=== PATIENT | female | born 1950 | race Caucasian/White ===

== ENCOUNTER 2021-06-02 20:24 | Observation (INO) | payer MEDICARE ==
[2021-06-02] MEDS ORDERED: SODIUM CHLORIDE 0.9% 500 ML 500 ML IV STA (21:01)
[2021-06-02] MEDS ORDERED: ACETAMINOPHEN TAB 500 MG TAB PO STA (21:23)
--- NOTE | 2021-06-02 21:23 | ED ---
Weakness HPI - General Chief complaint: Weakness Stated complaint: Weakness Time Seen by Provider: 06/02/21 21:01 Source: patient, EMS, RN notes reviewed Mode of arrival: EMS Limitations: no limitations - History of Present Illness Initial comments: This is a pleasant 71-year-old female who presents to emergency department after falling at home. This occurred about one hour prior to arrival. Patient states that she went to put her pants on slipped onto her butt and could not get up. Daughter states that she was slurring her speech when she was talking to EMS. She states that this is better now. There was no evidence or complaints of focal weakness. Patient really has no complaints at this time. In fact, when she got up with the help of EMS she was able to walk down the stairs at her home. Patient found to have a low-grade fever here. MD Complaint: generalized weakness - Related Data Home Medications Medication Instructions Recorded Confirmed Atorvastatin Calcium [Lipitor] 20 mg PO DAILY 06/02/21 06/02/21 HYDROcodone/APAP 5-325MG [[place] 1 tab PO Q6HR PRN 06/02/21 06/02/21 5-325] Omeprazole 20 mg PO DAILY 06/02/21 06/02/21 amLODIPine [Norvasc] 10 mg PO DAILY 06/02/21 06/02/21 Allergies Allergy/AdvReac Type Severity Reaction Status Date / Time No Known Allergies Allergy Verified 06/02/21 22:59 Review of Systems ROS Statement: Those systems with pertinent positive or pertinent negative responses have been documented in the HPI. ROS Other: All systems not noted in ROS Statement are negative. Past Medical History Past Medical History: Hyperlipidemia, Hypertension History of Any Multi-Drug Resistant Organisms: None Reported Past Surgical History: Hysterectomy, Joint Replacement, Tonsillectomy Past Psychological History: No Psychological Hx Reported Smoking Status: Never smoker Past Alcohol Use History: None Reported Past Drug Use History: None Reported General Exam - General Exam Comments Initial Comments: Elderly female in no acute distress. Does not appear to be ill or toxic. Vital signs reviewed. Limitations: no limitations General appearance: alert, in no apparent distress Head exam: Present: atraumatic, normocephalic, normal inspection Eye exam: Present: normal appearance, PERRL, EOMI. Absent: scleral icterus, conjunctival injection, periorbital swelling ENT exam: Present: normal exam, normal oropharynx, mucous membranes moist, TM's normal bilaterally, normal external ear exam. Absent: mucous membranes dry Neck exam: Present: normal inspection, full ROM. Absent: tenderness, meningismus, lymphadenopathy Respiratory exam: Present: normal lung sounds bilaterally. Absent: respiratory distress, wheezes, rales, rhonchi, stridor Cardiovascular Exam: Present: regular rate, normal rhythm, normal heart sounds. Absent: systolic murmur, diastolic murmur, rubs, gallop, clicks GI/Abdominal exam: Present: soft, normal bowel sounds. Absent: distended, tenderness, guarding, rebound, rigid Extremities exam: Present: normal inspection, full ROM, normal capillary refill. Absent: tenderness, pedal edema, joint swelling, calf tenderness Back exam: Present: normal inspection Neurological exam: Present: alert, oriented X3, CN II-XII intact, other (Cerebellar testing is normal. No focal neurologic deficit. Alert and oriented 4. [place] Coma Scale is 15.). Absent: altered, motor sensory deficit Psychiatric exam: Present: normal affect, normal mood Skin exam: Present: warm, dry, intact, normal color. Absent: rash Course Vital Signs 06/02/21 06/02/21 06/02/21 20:27 20:35 22:00 Temperature 100.7 F H Pulse Rate 97 102 H 91 Respiratory 18 18 18 Rate Blood Pressure 132/65 125/70 121/62 O2 Sat by Pulse 96 95 96 Oximetry 06/02/21 22:55 Temperature 99.5 F Pulse Rate Respiratory Rate Blood Pressure O2 Sat by Pulse Oximetry - Reevaluation(s) Reevaluation #1: 06/02/21 22:04 Medical record is reviewed Symptoms are stable here in the emergency department Patient is informed of results and questions answered Patient in no distress Repeat neurological examination shows no focal deficit, alert 904, cranial nerves II through XII intact, and a score of 0 Reevaluation #2: 06/03/21 00:14 Medical record is reviewed Symptoms are improved here in the emergency department Patient is informed of results and questions answered Patient in no distress Her refill less than 2 seconds. Patient has adequate skin color. No tachypnea. Regular heart rate. Pulses are 2+ out of 4 peripherally. Reevaluation #3: 06/03/21 00:15 Repeat neurological evaluation is benign. Cranial nerves II through XII intact. Alert and oriented 4. NH 0. - Consultations Consultation #1: Call made for the hospitalist physician for admission. EKG Findings - EKG Comments: EKG Findings:: EKG shows sinus rhythm with occasional PACs. Right ventricular conduction delay, heart [place] in V1. Normal intervals, rate of 93. No acute changes otherwise. Medical Decision Making - Medical Decision Making no focal deficit, alert 904, cranial nerves II through XII intact, and a score of 0 At this patient had an episode of slurred speech which started about 7:30 according to her daughter and lasted for about 10 minutes. Total resolution. Patient was started on Rocephin. Patient was given aspirin 325 mg by mouth. - Lab Data Result diagrams: 06/02/21 21:30 06/02/21 21:30 Lab Results 06/02/21 06/02/21 06/02/21 Range/Units 21:30 21:30 21:30 WBC 14.6 H (3.8-10.6) k/uL RBC 4.55 (3.80-5.40) m/uL Hgb 12.9 (11.4-16.0) gm/dL Hct 40.2 (34.0-46.0) % MCV 88.4 (80.0-100.0) fL MCH 28.5 (25.0-35.0) pg MCHC 32.2 (31.0-37.0) g/dL RDW 13.1 (11.5-15.5) % Plt Count 259 (150-450) k/uL MPV 7.2 Neutrophils % 85 % Lymphocytes % 7 % Monocytes % 6 % Eosinophils % 1 % Basophils % 0 % Neutrophils # 12.4 H (1.3-7.7) k/uL Lymphocytes # 1.0 (1.0-4.8) k/uL Monocytes # 0.9 (0-1.0) k/uL Eosinophils # 0.1 (0-0.7) k/uL Basophils # 0.1 (0-0.2) k/uL Sodium 136 L (137-145) mmol/L Potassium 4.1 (3.5-5.1) mmol/L Chloride 103 (98-107) mmol/L Carbon Dioxide 21 L (22-30) mmol/L Anion Gap 12 mmol/L BUN 18 H (7-17) mg/dL Creatinine 1.12 H (0.52-1.04) mg/dL Est GFR (CKD-EPI)AfAm 58 (>60 ml/min/1.73 sqM) Est GFR (CKD-EPI)NonAf 50 (>60 ml/min/1.73 sqM) Glucose 139 H (74-99) mg/dL Plasma Lactic Acid Philip 1.4 (0.7-2.0) mmol/L Calcium 8.7 (8.4-10.2) mg/dL Total Bilirubin 1.6 H (0.2-1.3) mg/dL AST 23 (14-36) U/L ALT 22 (4-34) U/L Alkaline Phosphatase 137 H (38-126) U/L Troponin I (0.000-0.034) ng/mL Total Protein 7.1 (6.3-8.2) g/dL Albumin 4.0 (3.5-5.0) g/dL TSH 1.410 (0.465-4.680) mIU/L Urine Color Urine Appearance (Clear) Urine pH (5.0-8.0) Ur Specific [place] (1.001-1.035) Urine Protein (Negative) Urine Glucose (UA) (Negative) Urine Ketones (Negative) Urine Blood (Negative) Urine Nitrite (Negative) Urine Bilirubin (Negative) Urine Urobilinogen (<2.0) mg/dL Ur Leukocyte Esterase (Negative) Urine RBC (0-5) /hpf Urine WBC (0-5) /hpf Urine WBC Clumps (None) /hpf Ur Squamous Epith Cells (0-4) /hpf Urine Bacteria (None) /hpf Hyaline Casts (0-2) /lpf Urine Mucus (None) /hpf Coronavirus (PCR) (Not Detectd) 06/02/21 06/02/21 06/02/21 Range/Units 21:30 21:30 22:00 WBC (3.8-10.6) k/uL RBC (3.80-5.40) m/uL Hgb (11.4-16.0) gm/dL Hct (34.0-46.0) % MCV (80.0-100.0) fL MCH (25.0-35.0) pg MCHC (31.0-37.0) g/dL RDW (11.5-15.5) % Plt Count (150-450) k/uL MPV Neutrophils % % Lymphocytes % % Monocytes % % Eosinophils % % Basophils % % Neutrophils # (1.3-7.7) k/uL Lymphocytes # (1.0-4.8) k/uL Monocytes # (0-1.0) k/uL Eosinophils # (0-0.7) k/uL Basophils # (0-0.2) k/uL Sodium (137-145) mmol/L Potassium (3.5-5.1) mmol/L Chloride (98-107) mmol/L Carbon Dioxide (22-30) mmol/L Anion Gap mmol/L BUN (7-17) mg/dL Creatinine (0.52-1.04) mg/dL Est GFR (CKD-EPI)AfAm (>60 ml/min/1.73 sqM) Est GFR (CKD-EPI)NonAf (>60 ml/min/1.73 sqM) Glucose (74-99) mg/dL Plasma Lactic Acid Philip (0.7-2.0) mmol/L Calcium (8.4-10.2) mg/dL Total Bilirubin (0.2-1.3) mg/dL AST (14-36) U/L ALT (4-34) U/L Alkaline Phosphatase (38-126) U/L Troponin I <0.012 (0.000-0.034) ng/mL Total Protein (6.3-8.2) g/dL Albumin (3.5-5.0) g/dL TSH (0.465-4.680) mIU/L Urine Color Yellow Urine Appearance Cloudy H (Clear) Urine pH 5.5 (5.0-8.0) Ur Specific [place] 1.014 (1.001-1.035) Urine Protein 1+ H (Negative) Urine Glucose (UA) Negative (Negative) Urine Ketones 2+ H (Negative) Urine Blood Moderate H (Negative) Urine Nitrite Negative (Negative) Urine Bilirubin Negative (Negative) Urine Urobilinogen <2.0 (<2.0) mg/dL Ur Leukocyte Esterase Large H (Negative) Urine RBC 101 H (0-5) /hpf Urine WBC >182 H (0-5) /hpf Urine WBC Clumps Few H (None) /hpf Ur Squamous Epith Cells 2 (0-4) /hpf Urine Bacteria Moderate H (None) /hpf Hyaline Casts 2 (0-2) /lpf Urine Mucus Few H (None) /hpf Coronavirus (PCR) Not Detected (Not Detectd) Disposition Clinical Impression: Urinary tract infection, Sepsis, TIA (transient ischemic attack) Disposition: ADMITTED IP TO THIS HOSP Condition: Stable Time of Disposition: 23:17 Decision to Admit Reason: Admit from EC Decision Time: 23:17
[2021-06-02 21:47] LABS: Basophils # (A) 0.1 k/uL (0-0.2); Basophils % (A) 0 %; Eosinophils # (A) 0.1 k/uL (0-0.7); Eosinophils % (A) 1 %; HCT 40.2 % (34.0-46.0); HGB 12.9 gm/dL (11.4-16.0); Lymphocytes % (A) 7 %; MCH 28.5 pg (25.0-35.0); MCHC 32.2 g/dL (31.0-37.0); MCV 88.4 fL (80.0-100.0); Mean Platelet Volume 7.2; Monocytes # (A) 0.9 k/uL (0-1.0); Monocytes % (A) 6 %; Neutrophils # (A) 12.4 k/uL (1.3-7.7); Neutrophils % (A) 85 %; Platelet Count 259 k/uL (150-450); RBC 4.55 m/uL (3.80-5.40); RDW 13.1 % (11.5-15.5); WBC 14.6 k/uL (3.8-10.6)
[2021-06-02 22:01] LABS: Calcium 8.7 mg/dL (8.4-10.2); Potassium 4.1 mmol/L (3.5-5.1); Total Bilirubin 1.6 mg/dL (0.2-1.3); Total Protein 7.1 g/dL (6.3-8.2)
--- NOTE | 2021-06-02 22:01 | XR ---
EXAMINATION TYPE: XR chest 2V DATE OF EXAM: 06/02/2021 9:46 PM COMPARISON: None TECHNIQUE: XR chest 2V Frontal and lateral views of the chest. CLINICAL INDICATION:Female, 71 years old with history of Weakness; FINDINGS: Lungs/Pleura: There is flattening of the diaphragm with increased lucency of the lungs. No evidence o f pneumothorax, pleural effusion or focal consolidation. Pulmonary vascularity: Unremarkable. Heart/mediastinum: Cardiomediastinal silhouette is prominent in size. Musculoskeletal: No acute osseous pathology. IMPRESSION: 1. No acute cardiopulmonary disease process. 2. COPD changes.
--- NOTE | 2021-06-02 22:01 | CT ---
EXAMINATION TYPE: CT brain wo con CT DLP: 1129.4 mGycm, Automated exposure control for dose reduction was used. DATE OF EXAM: 06/02/2021 9:48 PM COMPARISON: None. CLINICAL INDICATION:Female, 71 years old with history of Transient speech difficulty, Transient speec h difficulty after fall. TECHNIQUE: Brain: Multiple axial CT images of the brain were obtained without IV contrast. FINDINGS: Brain: Extra-axial spaces: No abnormal extra-axial fluid collections. Ventricular system: Within normal limits Cerebral parenchyma: No acute intraparenchymal hemorrhage or mass effect. The rome-white junction is well differentiated. Cerebellum: Unremarkable. Mass effect: No evidence of midline shift. Intracranial vasculature: unremarkable Soft tissues: Normal. Calvarium/osseous structures: No depressed skull fracture. Paranasal sinuses and mastoid air cells: Mild scattered paranasal sinus disease. Visualized orbits: Orbital contents are intact. IMPRESSION: No acute intracranial process.
[2021-06-02 22:08] LABS: Appearance,Urine Cloudy (Clear); Bacteria,Urine Moderate /hpf; Bilirubin,Urine Negative (Negative); Blood,Urine Moderate (Negative); Color,Urine Yellow; Glucose,Urine (UA) Negative (Negative); Hyaline Casts,Urine 2 /lpf (0-2); Ketones,Urine 2+ (Negative); Leukocyte Esterase,Urine Large (Negative); Mucus,Urine Few /hpf; Nitrite,Urine Negative (Negative); PH, Urine 5.5 (5.0-8.0); Protein,Urine 1+ (Negative); RBC,Urine 101 /hpf (0-5); Specific Gravity,Urine 1.014 (1.001-1.035); Squamous Epithelial Cell,Urine 2 /hpf (0-4); Urobilinogen,Urine <2.0 mg/dL (<2.0); WBC,Urine >182 /hpf (0-5)
--- NOTE | 2021-06-02 22:45 | CT ---
EXAMINATION TYPE: CT angio head neck DATE OF EXAM: 06/02/2021 COMPARISON: None HISTORY: Slurred speech. CT DLP: 486 mGycm Automated exposure control for dose reduction was used. CONTRAST: Performed with IV Contrast, patient injected with 65ml mL of Isovue 370. Images obtained from the aortic arch to the vertex of the brain with IV contrast. There are Three-D p ostprocessed images. There is normal branching pattern of the great vessels on the aortic arch. There is arterial flow in both subclavian arteries. There is arterial flow in the common internal and external carotid arteries bilaterally. There is arterial flow in both vertebral arteries. There is arterial flow in the verteb robasilar artery system. There is wide patency of the carotid artery bifurcations. No stenosis. Verte bral arteries appear within normal limits. No evidence of carotid or vertebral artery aneurysm or dis section. There is arterial flow in the anterior middle and posterior cerebral arteries. No evidence of intracr anial aneurysm or neovascularity. No mass effect there is normal enhancement of the venous sinuses. IMPRESSION: Negative CT angiogram of the neck. Negative CT angiogram of the brain.
[2021-06-02] MEDS ORDERED: ASPIRIN 325 MG TAB PO STA (23:21)
[2021-06-02] MEDS ORDERED: SODIUM CHLORIDE 0.9% 1,000 ML IV SCH (23:30)
[2021-06-03] MEDS ORDERED: NALOXONE 0.4 MG/ML 1 ML VIAL IV PRN (00:34)
[2021-06-03] MEDS ORDERED: ACETAMINOPHEN TAB 325 MG TAB PO PRN (00:34)
[2021-06-03] MEDS ORDERED: ONDANSETRON 4 MG/2 ML VIAL IVP PRN (00:34)
[2021-06-03] MEDS ORDERED: HYDROcodone/APAP 5-325MG 1 EACH TAB PO PRN (07:57)
--- NOTE | 2021-06-03 07:57 | P.HPIM ---
History of Present Illness H&P Date: 06/03/21 History of Presenting Illness: Patient is a very pleasant 71-year-old female with a past medical history of hypertension, hyperlipidemia, and osteoarthritis. She presented to the emergency department status post fall at home. Patient reports that she was putting her pajamas on and when putting on her bottoms she slid down off of the bed onto her bottom. Patient states she was having difficulties getting up and was not able to get up on her own so her daughter called EMS. Per documentation in the emergency department, patient's daughter reports patient to have an episode of slurred speech lasting approximately 10 minutes and resolving spontaneously without any interventions. Upon arrival to the emergency department patient had no reports of slurred speech or weakness. She underwent full evaluation in the emergency department. CT brain was completed negative for acute intercranial process. CTA head and neck negative. Chest x-ray negative for acute cardiopulmonary process revealing evidence of COPD changes with flattening of the diaphragm and increased lucency of the lungs. EKG showing sinus rhythm and 93 bpm with occasional PAC, no noted T-wave or ST ab normality showing no signs of acute ischemia. Labs significant for leukocytosis with WBC count of 14.6 and mild elevation of renal function with BUN 18, creatinine 1.12, and GFR of 50. Urinalysis was positive for infection. Patient was started on IV antibiotics Rocephin and admitted under our services with consultation to neurology. Patient was seen and fully evaluated at the bedside this morning. She was alert and oriented to person, place, time, and situation. Speech was clear, face symmetrical, pupils equal, patient with no noted neurological deficits and ambulatory with a steady gait unassisted and room without any difficulties. Patient denied having any complaints including headac he, lightheadedness, dizziness, chest pain, palpitations, shortness of breath, dyspnea with exertion, abdominal pain, nausea, vomiting, having any difficulties in her changes in urinary or bowel function, denied urinary frequency, urgency, dysuria, hematuria, or any other complaints. Patient has some noted swelling in lower extremities and reports this is her baseline and unchanged times many yea rs. Patient reports that she has full recollection of sliding off of the bed when putting her pajamas on, she denies experiencing any dizziness, lightheadedness, weakness, or numbness prior to fall and denies any injuries, focal weaknesses, or numbness after the fall. Review of systems: Pertinent positives and negatives as discussed in HPI, a complete review of systems was performed and all other systems are negative. Physical exam: Vital signs reviewed and stable. General: Nontoxic, no distress and appears stated age. Derm: Skin warm and dry, normal coloration for ethnicity. Head: Atraumatic, normocephalic and symmetric. Eyes: EOMs intact, no lid lag, and anicteric sclera Mouth: no lip lesions, mucus membranes moist Cardiovascular: regular rate and rhythm with normal S1S2, no murmur, positive posterior tibial pulses bilaterally, and cap refill < 2 seconds. Lungs: Respirations even, regular, and unlabored on room air. Lungs CTA bilaterally, no rhonchi, no rales, no wheezing, and no accessory muscle usage. Abdominal: soft, nontender to palpation, no guarding, no appreciable organomegaly Ext: ROM intact. No gross muscle atrophy, 1+ pitting edema to bilateral lower extremities, no contractures Neuro: Speech clear, face symmetrical and CN II-XII grossly intact with no noted focal neuro deficits. Strong strength in bilateral upper and lower extremities. Ambulatory with a steady gait unassisted. No neural deficits. Psych: Alert and oriented to person, place, time, and situation. Appropriate and pleasant affect. Assessment and Plan of Care: Mechanical fall, weakness with inability to get up independently after fall Reported episode of slurred speech -CT brain without contrast negative -CTA head and neck negative -Neuro checks -Neurology consult -Echocardiogram -Lipid profile -Continue daily aspirin and atorvastatin -PT/OT consulted Hypertension -Monitor vital signs and continue daily medication regimen with amlodipine Hyperlipidemia -Continue daily medication regimen with atorvastatin -Lipid profile The patient is admitted with an anticipated less than 2 midnight stay for evaluation of mechanical fall with episode of slurred speech. CODE STATUS: Full code DVT prophylaxis: [place] Discussed with: Patient and RN Anticipated discharge date: Likely later today versus tomorrow morning Anticipated discharge place: home A total of 40 minutes was spent on the care of this complex patient more than 50% of the time was spent in counseling and care coordination. Nathan Bailon NP rendered care for this patient independently, reviewed the findings and plan as documented in the note above. I did not physically speak with or examine the patient on this date. Past Medical History Past Medical History: Hyperlipidemia, Hypertension History of Any Multi-Drug Resistant Organisms: None Reported Past Surgical History: Hysterectomy, Joint Replacement, Tonsillectomy Past Psychological History: No Psychological Hx Reported Smoking Status: Never smoker Past Alcohol Use History: None Reported Past Drug Use History: None Reported Medications and Allergies Home Medications Medication Instructions Recorded Confirmed Type Atorvastatin Calcium [Lipitor] 20 mg PO DAILY 06/02/21 06/02/21 History HYDROcodone/APAP 5-325MG [[place] 1 tab PO Q6HR PRN 06/02/21 06/02/21 History 5-325] Omeprazole 20 mg PO DAILY 06/02/21 06/02/21 History amLODIPine [Norvasc] 10 mg PO DAILY 06/02/21 06/02/21 History Aspirin 81 mg PO DAILY 30 Days #30 tab 06/03/21 Rx Cephalexin [Keflex] 500 mg PO Q8HR 4 Days #12 cap 06/03/21 Rx Allergies Allergy/AdvReac Type Severity Reaction Status Date / Time No Known Allergies Allergy Verified 06/02/21 22:59 Physical Exam Osteopathic Statement: *. No significant issues noted on an osteopathic structural exam other than those noted in the History and Physical/Consult. Vitals: Vital Signs Temp Pulse Pulse Resp BP BP Pulse Ox 06/03/21 07:00 98.3 F 96 16 106/64 94 L 06/03/21 01:37 98.6 F 93 16 136/84 98 06/02/21 22:55 99.5 F 06/02/21 22:00 91 18 121/62 96 06/02/21 20:35 102 H 18 125/70 95 06/02/21 20:27 100.7 F H 97 18 132/65 96 Intake and Output 06/02/21 06/03/21 06/03/21 22:59 06:59 14:59 Other: # Voids 1 Weight 97.976 kg 97.976 kg Results CBC & Chem 7: 06/03/21 09:15 06/03/21 09:15 Labs: Abnormal Lab Results - Last 24 Hours (Table) 06/02/21 06/02/21 06/02/21 Range/Units 21:30 21:30 22:00 WBC 14.6 H (3.8-10.6) k/uL Neutrophils # 12.4 H (1.3-7.7) k/uL Sodium 136 L (137-145) mmol/L Carbon Dioxide 21 L (22-30) mmol/L BUN 18 H (7-17) mg/dL Creatinine 1.12 H (0.52-1.04) mg/dL Glucose 139 H (74-99) mg/dL Total Bilirubin 1.6 H (0.2-1.3) mg/dL Alkaline Phosphatase 137 H (38-126) U/L Urine Appearance Cloudy H (Clear) Urine Protein 1+ H (Negative) Urine Ketones 2+ H (Negative) Urine Blood Moderate H (Negative) Ur Leukocyte Esterase Large H (Negative) Urine RBC 101 H (0-5) /hpf Urine WBC >182 H (0-5) /hpf Urine WBC Clumps Few H (None) /hpf Urine Bacteria Moderate H (None) /hpf Urine Mucus Few H (None) /hpf Microbiology - Last 24 Hours (Table) 06/02/21 22:00 Urine Culture - Preliminary Urine,Voided
[2021-06-03] MEDS ORDERED: ATORVASTATIN 20 MG TAB PO SCH (09:00)
[2021-06-03] MEDS ORDERED: ENOXAPARIN 40 MG/0.4 ML SYRINGE SQ SCH (09:00)
[2021-06-03] MEDS ORDERED: amLODIPine 10 MG TAB PO SCH (09:00)
[2021-06-03] MEDS ORDERED: ASPIRIN 325 MG TAB PO SCH (09:00)
[2021-06-03] MEDS ORDERED: PANTOPRAZOLE 40 MG/10 ML VIAL IV SCH (09:00)
[2021-06-03] MEDS ORDERED: NON FORMULARY DRUG (Omeprazole [Omeprazole] 20 MG Capsule.Dr) PO SCH (09:00)
--- NOTE | 2021-06-03 09:27 | P.CNNES ---
History of Present Illness Consult date: 06/03/21 Requesting physician: Ankit Cm Reason for Consult: possible TIA, transient slurred speech History of Present Illness: This is a 71-year-old woman with medical history of hypertension, hyperlipidemia, very hard of hearing presented emergency department on the 06/02/2021 after falling at home. It seemed to the patient was trying to put the on her pants and slipped at home and fell on her buttocks and could not get up. The daughter felt like she was slurring her speech as a result EMS was contacted that. Per the ED team the patient was able to walk down the stairs at home with some help from EMS. She was found to have low-grade fever. Patient denies of her noticing that she slurred speech. She currently feels she is back to baseline and denies of any headache, any visual disturbance any difficulty swallowing any weakness or numbness. She denies of any TIA or stroke in the past. She stated that she is not on any antiplatelets. Some of the workup in the hospital consisted of: Initial vital signs his blood pressure of 132/65, heart rate of 97, respiratory of 18, temperature of 100.7 Fahrenheit oral pulse ox of 96% room air. Initial white blood cells 14.6 and it's slightly neutrophilic. Next a Initial creatinine is 1.2, BUN is 18, possible left acid vein is 1.4, AST and ALT is within normal limits TSH is 1.410 Urinalysis seen suggestive of urinary tract infection. Bay virus detected. CT of the head is reported as no acute intracranial process. Personally reviewed the CT of the head and there is no acute or subacute ischemia there is a large parenchymal hemorrhage as seen. CT angiography of the head and neck is reported as negative. Per ED team patient exam was normal and her NIH was 0. She was alert oriented 4. No IV TPA since the patient NIH was 0 and she was back to baseline and the risk outweighed the benefit. Review of Systems Review of system: The 12 point system was reviewed and apparent positive and negative per HPI. Past Medical History Past Medical History: Hyperlipidemia, Hypertension History of Any Multi-Drug Resistant Organisms: None Reported Past Surgical History: Hysterectomy, Joint Replacement, Tonsillectomy Past Psychological History: No Psychological Hx Reported Smoking Status: Never smoker Past Alcohol Use History: None Reported Past Drug Use History: None Reported Medications and Allergies Home Medications Medication Instructions Recorded Confirmed Type Atorvastatin Calcium [Lipitor] 20 mg PO DAILY 06/02/21 06/02/21 History HYDROcodone/APAP 5-325MG [[place] 1 tab PO Q6HR PRN 06/02/21 06/02/21 History 5-325] Omeprazole 20 mg PO DAILY 06/02/21 06/02/21 History amLODIPine [Norvasc] 10 mg PO DAILY 06/02/21 06/02/21 History Allergies Allergy/AdvReac Type Severity Reaction Status Date / Time No Known Allergies Allergy Verified 06/02/21 22:59 Physical Examination - Vital Signs Vital Signs: Vital Signs Temp Pulse Pulse Resp BP BP Pulse Ox 06/03/21 07:00 98.3 F 96 16 106/64 94 L 06/03/21 01:37 98.6 F 93 16 136/84 98 06/02/21 22:55 99.5 F 06/02/21 22:00 91 18 121/62 96 06/02/21 20:35 102 H 18 125/70 95 06/02/21 20:27 100.7 F H 97 18 132/65 96 Intake and Output 06/02/21 06/03/21 06/03/21 22:59 06:59 14:59 Other: # Voids 1 Weight 97.976 kg 97.976 kg GENERAL: The patient is lying in bed and is not in acute distress. CHEST: The heart rate is regular rate rhythm. No murmurs to auscultation. No carotid bruit bilaterally. LUNG: Clear to auscultation bilaterally no wheezing noted throughout. Not labored breathing. ABDOMEN/GI: Bowel sounds present in all 4 quadrants. No tenderness to palpation throughout. NEUROLOGICAL: Higher mental function: The patient is awake, alert, oriented to self, place and time. Patient is following commands. No aphasia and no neglect. Cranial nerves: The pupils are round, equal and reactive to light and accommodation. Visual chan are full to confrontation throughout. Extraocular movement is intact no nystagmus is noted. Facial sensation is normal to touch throughout. The facial strength is normal throughout. Hearing is severely decreased bilaterally to hand rub (patient stated she forgot her hearing aids at home). Tongue is midline and moved [id number] without any difficulty. No dysarthria is noted. Shoulder shrug is normal bilaterally. Motor: Gait is normal with normal arm swings. The strength is 5 over 5 throughout. Normal tone and bulk. Cerebellum: Normal finger to nose heel to rabago bilaterally. Sensation: Sensation is normal to touch throughout. Reflexes (right/left): 2+ throughout. Plantars are downgoing bilaterally. Results - Laboratory Findings CBC and BMP: 06/02/21 21:30 06/02/21 21:30 Abnormal Lab Findings: Abnormal Labs 06/02/21 06/02/21 06/02/21 21:30 21:30 22:00 WBC 14.6 H Neutrophils # 12.4 H Sodium 136 L Carbon Dioxide 21 L BUN 18 H Creatinine 1.12 H Glucose 139 H Total Bilirubin 1.6 H Alkaline Phosphatase 137 H Urine Appearance Cloudy H Urine Protein 1+ H Urine Ketones 2+ H Urine Blood Moderate H Ur Leukocyte Esterase Large H Urine RBC 101 H Urine WBC >182 H Urine WBC Clumps Few H Urine Bacteria Moderate H Urine Mucus Few H Assessment and Plan Assessment: Acute urinary tract infection Acute transient dysarthria (noticed by her daughter after fall at home) likely due to underlying acute renal tract infection and possible result of impact of fall. Cannot exclusively exclude TIA. Hyperlipidemia History of hypertension and currently is normotensive Plan: In the ED the patient was started on aspirin 325 daily I'll decrease it to 81 mg daily and she is on Lipitor 20 mg daily that was started by the primary team. This is sufficient enough for secondary stroke prophylaxis 2-D echo, lipid panel were ordered and is pending PT and OT are consulted Continue neuro checks We'll defer the rest of the medical management to the primary team For DVT prophylaxis the patient is on enoxaparin 40 mg daily Upon discharge the patient needs to follow-up with a neurologist as outpatient within 1-2 weeks. Otherwise no further workup from a neurological perspective. The plan is discussed with the patient and her nurse. Thank you for the consultation. Heladio Reese M.D. Neuro-hospitalist Time with Patient: Greater than 30
[2021-06-03 09:29] LABS: HCT 38.1 % (34.0-46.0); HGB 12.3 gm/dL (11.4-16.0); MCH 28.9 pg (25.0-35.0); MCHC 32.2 g/dL (31.0-37.0); MCV 89.5 fL (80.0-100.0); Mean Platelet Volume 7.5; Platelet Count 273 k/uL (150-450); RBC 4.25 m/uL (3.80-5.40); WBC 18.3 k/uL (3.8-10.6)
[2021-06-03 09:56] LABS: ALT 27 U/L (4-34); AST 34 U/L (14-36); African American GFR (CKD) 54 (>60 ml/min/1.73 sqM); Albumin 3.6 g/dL (3.5-5.0); Albumin/Globulin Ratio 1.2; Alkaline Phosphatase 153 U/L (38-126); Anion Gap 13 mmol/L; Blood Urea Nitrogen 17 mg/dL (7-17); Calcium 8.3 mg/dL (8.4-10.2); Carbon Dioxide 20 mmol/L (22-30); Chloride 105 mmol/L (98-107); Globulin 3.1 g/dL; Glucose 131 mg/dL (74-99); Magnesium 1.6 mg/dL (1.6-2.3); Non-African American GFR(CKD) 47 (>60 ml/min/1.73 sqM); Potassium 3.9 mmol/L (3.5-5.1); Sodium 138 mmol/L (137-145); Total Bilirubin 1.4 mg/dL (0.2-1.3); Total Protein 6.7 g/dL (6.3-8.2)
--- NOTE | 2021-06-03 12:15 | ECHOF ---
Referral Reason:r/o TIA MEASUREMENTS -------- HEIGHT: 152.4 cm WEIGHT: 98.0 kg BP: RVIDd: 3.4 cm (< 3.3) IVSd: 1.2 cm (0.6 - 1.1) LVIDd: 3.9 cm (3.9 - 5.3) LVPWd: 1.0 cm (0.6 - 1.1) IVSs: 1.3 cm LVIDs: 3.0 cm LVPWs: 1.6 cm LA Diam: 3.4 cm (2.7 - 3.8) LAESV Index (A-L): 34.44 ml/m Ao Diam: 2.2 cm (2.0 - 3.7) AV Cusp: 1.6 cm (1.5 - 2.6) LA Diam: 3.5 cm (2.7 - 3.8) MV EXCURSION: 12.527 mm (> 18.000) MV EF SLOPE: 51 mm/s (70 - 150) EPSS: 0.6 cm MV E Eduardo: 0.82 m/s MV DecT: 159 ms MV A Eduardo: 0.87 m/s MV E/A Ratio: 0.94 RAP: 5.00 mmHg RVSP: 10.74 mmHg FINDINGS -------- Sinus rhythm. This was a technically good study. LV size, wall thickness and systolic function are normal, with an EF greater than 55%. The left jose tricular size is normal. The right ventricle is mildly enlarged. LA is moderately dilated 34-39 ml/m2 The right atrial size is normal. There is mild aortic valve sclerosis. The mitral valve is normal. Mild mitral regurgitation is present. The tricuspid valve appears structurally normal. Mild tricuspid regurgitation present. Right vent ricular systolic pressure is normal at < 35 mmHg. There is no pulmonic regurgitation present. The aortic root size is normal. Echo free space represents a pericardial fat pad. CONCLUSIONS -------- 1. LV size, wall thickness and systolic function are normal, with an EF greater than 55%. 2. The right ventricle is mildly enlarged. 3. LA is moderately dilated 34-39 ml/m2 4. There is mild aortic valve sclerosis. 5. Mild mitral regurgitation is present. 6. Mild tricuspid regurgitation present. 7. Echo free space represents a pericardial fat pad. ACCOUNTING TUTOR: Rosa Hammonds RDCS
--- NOTE | 2021-06-03 14:39 | P.DS ---
Providers Date of admission: 06/03/21 00:39 Expected date of discharge: 06/03/21 Attending physician: Nadege Tijerina MD Consults: 06/03/21 00:34 Consult Physician Urgent Consulting Provider: Heladio Reese Consult Reason/Comments: Possible TIAtransient slurred speech Do you want consulting provider notified?: Yes, Notify in am Primary care physician: Physician Nonstaff Hospital Course: Discharge Diagnosis: Urinary tract infection with leukocytosis, discharged home on oral Keflex 4 days to complete entire 5 day course of antibiotics. Patient to follow up outpatient with PCP for repeat urinalysis after completion of treatment. Mechanical fall, weakness with inability to get up independently after fall. Pt ambulating without difficulty with a strong steady gait. Acute transient dysarthria ( reported by patient's daughter status post fall at home) likely secondary to underlying infection with UTI or impact of fall, neurology unable to completely exclude TIA. Pt discharged home on daily aspiring and atorvastatin. Hypertension Hyperlipidemia Hospital Course: Patient is a very pleasant 71-year-old female with a past medical history of hypertension, hyperlipidemia, and osteoarthritis. She presented to the emergency department status post fall at home. Patient reports that she was putting her pajamas on and when putting on her bottoms she slid down off of the bed onto her bottom. Patient states she was having difficulties getting up and was not able to get up on her own so her daughter called EMS. Per documentation in the emergency department, patient's daughter reports patient to have an episode of slurred speech lasting approximately 10 minutes and resolving spo ntaneously without any interventions. Upon arrival to the emergency department patient had no reports of slurred speech or weakness. She underwent full evaluation in the emergency department. CT brain was completed negative for acute intercranial process. CTA head and neck negative. Chest x-ray negative for acute cardiopulmonary process revealing evidence of COPD changes with flattening of the diaphragm and increased lucency of the lungs. EKG showing sinus rhythm and 93 bpm with occasional PAC, no noted T-wave or ST abnormality showing no signs of acute ischemia. Labs significant for leukocytosis with WBC count of 14.6 and mild elevation of renal function with BUN 18, creatinine 1.12, and GFR of 50. Urinalysis was positive for infection. Patient was started on IV antibiotics Rocephin and admitted under our services with consultation to neurology. Patient was seen and fully evaluated at the bedside this morning. She was alert and oriented to person, place, time, and situation. Speech was clear, face symmetrical, pupils equal, patient with no noted neurological deficits and ambulatory with a steady gait unassisted and room without any difficulties. Patient denied having any complaints including headache, lightheadedness, dizziness, chest pain, palpitations, shortness of breath, dyspnea with exertion, abdominal pain, nausea, vomiting, having any difficulties in her changes in urinary or bowel function, denied urinary frequency, urgency, dysuria, hematuria, or any other complaints. Patient has some noted swelling in lower extremities and reports this is her baseline and unchanged times many years. Patient reports that she has full recollection of sliding off of the bed when putting her pajamas on, she denies experiencing any dizziness, lightheadedness, weakness, or numbness prior to fall and denies any injuries, focal weaknesses, or numbness after the fall. she was admitted and monitored overnight. Patient remained alert and oriented 4 throughout entire hospitalization with no further episodes of slurred speech or any other neuro deficits noted. She was seen and fully evaluated by neurology. Neurology recommending continuation of daily aspirin 81 mg and atorvastatin 20 mg. echocardiogram was completed revealing a normal EF greater than 55% with no significant valvular abnormalities. Patient medically stable at this time denying any and all complaints. she is stable for discharge home. Prescription sent for Keflex 500 mg every 8 hours 4 days to complete 5 day course of antibiotics for treatment of UTI and patient to continue with atorvastatin 20 mg daily as well as adding a daily 81 mg aspirin to medication regimen. Physical exam: Vital signs reviewed and stable. General: Nontoxic, no distress and appears stated age. Derm: Skin warm and dry, normal coloration for ethnicity. Head: Atraumatic, normocephalic and symmetric. Eyes: EOMs intact, no lid lag, and anicteric sclera Mouth: no lip lesions, mucus membranes moist Cardiovascular: regular rate and rhythm with normal S1S2, no murmur, positive posterior tibial pulses bilaterally, and cap refill < 2 seconds. Lungs: Respirations even, regular, and unlabored on room air. Lungs CTA bilaterally, no rhonchi, no rales, no wheezing, and no accessory muscle usage. Abdominal: soft, nontender to palpation, no guarding, no appreciable organomegaly Ext: ROM intact. No gross muscle atrophy, 1+ pitting edema to bilateral lower extremities, no contractures Neuro: Speech clear, face symmetrical and CN II-XII grossly intact with no noted focal neuro deficits. Strong strength in bilateral upper and lower extremities. Ambulatory with a steady gait unassisted. No neural deficits. Psych: Alert and oriented to person, place, time, and situation. Appropriate and pleasant affect. A total of 39 minutes of time were spent preparing this complex discharge summary. Nathan Bailon NP rendered care for this patient independently, reviewed the findings and plan as documented in the note above. I did not physically speak with or examine the patient on this date. Patient Condition at Discharge: Stable Plan - Discharge Summary New Discharge Prescriptions: New Cephalexin [Keflex] 500 mg PO Q8HR 4 Days #12 cap Aspirin 81 mg PO DAILY 30 Days #30 tab Continue Omeprazole 20 mg PO DAILY HYDROcodone/APAP 5-325MG [[place] 5-325] 1 tab PO Q6HR PRN PRN Reason: Pain amLODIPine [Norvasc] 10 mg PO DAILY Atorvastatin Calcium [Lipitor] 20 mg PO DAILY Discharge Medication List Atorvastatin Calcium [Lipitor] 20 mg PO DAILY 06/02/21 [History] HYDROcodone/APAP 5-325MG [[place] 5-325] 1 tab PO Q6HR PRN 06/02/21 [History] Omeprazole 20 mg PO DAILY 06/02/21 [History] amLODIPine [Norvasc] 10 mg PO DAILY 06/02/21 [History] Aspirin 81 mg PO DAILY 30 Days #30 tab 06/03/21 [Rx] Cephalexin [Keflex] 500 mg PO Q8HR 4 Days #12 cap 06/03/21 [Rx] Follow up Appointment(s)/Referral(s): Francisco Javier Verde MD [REFERRING] - 1 Week Patient Instructions/Handouts: Urinary Tract Infection in Women (DC) Activity/Diet/Wound Care/Special Instructions: Activity: As tolerated. Take breaks as needed. Diet: Heart healthy and carb consistent diet. Avoid salts, or foods with hidden salts such as canned or boxed foods and frozen dinners. Extra salt makes your heart work harder and traps the fluid in your body for longer. Special Instructions: Take all of your medications as directed and remember to keep all of your doctor's appointments and follow-up as needed. You are being discharged home with oral antibiotic, Keflex. It is important to take this medication every 8 hours as directed and complete entire course to ensure full resolution of urinary tract infection. Thank you for allowing us to participate in your care, it was truly a pleasure having you for our patient!!! Discharge Disposition: HOME SELF-CARE
[2021-06-03 14:42] VITALS: BP 107/64; PULSE 86; RESP 20; TEMP 99
[2021-06-03 20:33] LABS: Chol/HDL Ratio 2.78 Ratio; LDL Cholesterol,Calculated 74.8 mg/dL (0.0-131.0)
--- NOTE | 2021-06-03 21:41 | P.PN ---
Progress Note - Text Progress Note Date: 06/03/21 after patient discharge, blood culture results came back showing gram neg rods I notified patient over the phone, she is doing well, I gave her two options, either come back to the ED and get admitted to start her on antibiotics and monitor her for a day or two. or switch her antibiotcs to PO cipro 500 mg BID for 14 days. and to monitor herself closely , if she starts spiking fevers again , or not feeling well , to come back to the ED. she reported that she feels pretty well, and preferred to be prescribed new antibiotics to take at home , and if she starts to feel worse then would come back to the hospital. She chose [facility] in [place]. Cipro 500 mg PO BID for 14 days prescription was sent electronically
[2021-06-04] MEDS ORDERED: ASPIRIN 81 MG PO SCH (09:00)
== END 2021-06-03 15:06 | disposition home or self-care (01) ==
LOC: EC 20:24 → 6NMEDSUR 06-03 00:39
PROVIDERS: ADMIT Internal Medicine; ATTEND Internal Medicine
DX: N39.0 Urinary tract infection, site not specified (principal); R47.1 Dysarthria and anarthria; I10 Essential (primary) hypertension; E78.5 Hyperlipidemia, unspecified; M19.90 Unspecified osteoarthritis, unspecified site; J44.9 Chronic obstructive pulmonary disease, unspecified; M79.89 Other specified soft tissue disorders; H91.90 Unspecified hearing loss, unspecified ear; I08.3 Combined rheumatic disorders of mitral, aortic and tricuspid valves; Z20.822 Contact with and (suspected) exposure to COVID-19; Y92.009 Unspecified place in unspecified non-institutional (private) residence as the place of occurrence of the external cause; W18.30XA Fall on same level, unspecified, initial encounter; W06.XXXA Fall from bed, initial encounter; Z79.82 Long term (current) use of aspirin; Z79.899 Other long term (current) drug therapy; Z71.9 Counseling, unspecified; Z90.710 Acquired absence of both cervix and uterus; Z96.60 Presence of unspecified orthopedic joint implant
CPT/HCPCS: 96366; 96372; 96375; 96361; 96365; 99285; 36415; 93005; 93306; 97161; 80061; 80053 ×2; 83605; 83735; 84443; 84484; 85025; 85027; 81001; 87040; 87086; 87077; 87186; 87635; 71046; 70496; 70450; 70498; G0378; J1650; J0696; C9113; Q9967

== ENCOUNTER → 2021-07-26 | Outpatient (CLI) | payer MEDICARE ==
--- NOTE | 2021-07-27 09:33 | MM ---
Reason for Exam: Screening (asymptomatic). Last mammogram was performed 1 year(s) and 3 month(s) ago. Patient History: Menarche at age 14. First Full-Term at age 26. Hysterectomy at age 48. Postmenopausal. Estrogen for 6 months. Risk Values: [place] 5 year model risk: 1.5%. NCI Lifetime model risk: 4.8%. Prior Study Comparison: 02/26/2020 Bilateral MG screening mammo w CAD - 2, [facility]. 04/27/2020 Bilateral MG screening mammo w CAD - 2, [facility]. Tissue Density: There are scattered fibroglandular densities. Findings: Analyzed By CAD. There is no suspicious group of microcalcifications or new suspicious mass in either breast. Overall Assessment: Negative, BI-RAD 1 Management: Screening Mammogram of both breasts in 1 year. A clinical breast exam by your physician is recommended on an annual basis and results should be correlated with mammographic findings. Electronically signed and approved by: Yves Gonzalez M.D. Radiologis
== END | disposition home or self-care (01) ==
LOC: RADMAMWWP 08:26
PROVIDERS: ATTEND Internal Medicine
DX: Z12.31 Encounter for screening mammogram for malignant neoplasm of breast (principal); Z78.0 Asymptomatic menopausal state
CPT/HCPCS: 77063; 77067

== ENCOUNTER → 2021-08-02 | Outpatient (CLI) | payer MEDICARE ==
--- NOTE | 2021-08-02 12:18 | US ---
EXAMINATION TYPE: US abdomen limited DATE OF EXAM: 08/02/2021 COMPARISON: NONE CLINICAL HISTORY: 71-year-old female R74.8 ABN LEVELS OF OTHER SERUM ENZYMES. TECHNIQUE: Multiple sonographic images of the right or quadrant are obtained. FINDINGS: EXAM MEASUREMENTS: Liver Length: 13.9 cm Gallbladder Wall: 0.1 cm CBD: 0.3 cm Right Kidney: 9.0 x 3.6 x 4.7 cm Pancreas: wnl Liver: Homogeneous appearance. No focal lesion. Gallbladder: wnl Evidence for sonographic Franz's sign: No CBD: wnl Right Kidney: A benign midpole cortical cyst measuring 1.1 x 1.0 x 1.4cm. No hydronephrosis. IMPRESSION: Incidental benign 1.4 cm cortical cyst of the right kidney. Otherwise, unremarkable sonographic exami nation right upper quadrant.
== END | disposition home or self-care (01) ==
LOC: RADUSWWP 08:11
PROVIDERS: ATTEND Internal Medicine
DX: N28.1 Cyst of kidney, acquired (principal)
CPT/HCPCS: 76705

== ENCOUNTER → 2022-07-26 | Outpatient (CLI) | payer MEDICARE ==
--- NOTE | 2022-07-26 13:14 | BD ---
EXAMINATION TYPE: Axial Bone Density DATE OF EXAM: 07/26/2022 CLINICAL HISTORY: 72 years old Female. ICD-10 CODE: Z78.0 ASYMPTOMATIC MENOPAUSAL STATE Height: 60 in Weight: 244 lbs FRAX RISK QUESTIONS: Secondary Osteoporosis: 3. Menopause before 45: total hysterectomy age 46 RISK FACTORS HISTORY OF: Surgery to Hip(right/left): kody When: 2010 and 2013 Active: yes Postmenopausal woman: age 46 MEDICATIONS: Additional Medications: high blood pressure meds,cholesterol meds, heartburn meds EXAM MEASUREMENTS: Bone mineral densitometry was performed using the [employer] System. Bone mineral density as measured about the Lumbar spine is: ----- L1-L4(G/cm2): 1.311 T Score Values are as follows: ----- L1: 0.7 ----- L2: -0.2 ----- L3: 0.9 ----- L4: 2.3 ----- L1-L4: 1.1 Z Score Values are as follows: ----- L1: 1.2 ----- L2: 0.3 ----- L3: 1.4 ----- L4: 2.8 ----- L1-L4: 1.6 Bone mineral density baseline bilateral hip replacements Bone mineral density about the L Wrist (g/cm2): 0.674 T Score values are as follows: -----Dist. R+U: 1.8 -----Prox. R+U: -1.1 -----Radius total: 0.0 Z Score values are as follows: -----Dist. R+U: 3.6 -----Prox. R+U: 0.7 -----Radius total: 1.8 Bone mineral density baseline IMPRESSION: Osteopenia (T Score between -2.5 and -1). There is slightly increased risk of fracture and the patient may be considered for treatment. Re-Screen 2-5 years. NOTE: T-SCORE=SD OF THE YOUNG ADULT MEAN.
--- NOTE | 2022-07-26 14:16 | MM ---
Reason for Exam: Screening (asymptomatic). Last screening mammogram was performed 12 month(s) ago. Patient History: Menarche at age 14. First Full-Term at age 26. Hysterectomy at age 48. Postmenopausal. Patient has history of breast feeding. Estrogen for 6 months. Risk Values: [place] 5 year model risk: 1.5%. NCI Lifetime model risk: 4.5%. Prior Study Comparison: 02/26/2020 Bilateral MG screening mammo w CAD - 2, [facility]. 04/27/2020 Bilateral MG screening mammo w CAD - 2, [facility]. 07/26/2021 Bilateral MG 3D screening mammo w/cad, [facility]. Tissue Density: There are scattered fibroglandular densities. Findings: Analyzed By CAD. There is no suspicious group of microcalcifications or new suspicious mass in either breast. Overall Assessment: Negative, BI-RAD 1 Management: Screening Mammogram of both breasts in 1 year. A clinical breast exam by your physician is recommended on an annual basis and results should be correlated with mammographic findings. Electronically signed and approved by: Dougie Gannon D.O.
== END | disposition home or self-care (01) ==
LOC: RADMAMWWP 12:02
PROVIDERS: ATTEND Internal Medicine
DX: Z12.31 Encounter for screening mammogram for malignant neoplasm of breast (principal); Z13.820 Encounter for screening for osteoporosis; M85.89 Other specified disorders of bone density and structure, multiple sites; Z78.0 Asymptomatic menopausal state
CPT/HCPCS: 77063; 77067; 77080

== ENCOUNTER → 2023-02-01 | Outpatient (CLI) | payer MEDICARE ==
--- NOTE | 2023-02-02 11:14 | MR ---
EXAMINATION TYPE: MR MRCP DATE OF EXAM: 02/01/2023 11:09 AM CLINICAL INDICATION:Female, 72 years old with history of R74.8 elevated alk phos; PHH, ELEVATED ALKAL INE PHOSPHATASE LEVEL COMPARISON: None TECHNIQUE: Multi planar, T2-weighted imaging with and without fat saturation and chemical shift imag ing was performed of the abdomen. Then, heavily T2 weighted imaging (half-Fourier acquisition single- shot turbo spin-echo) was utilized in order to study the biliary system. Maximum intensity projectio n images were reconstructed from the original data of the biliary tree. 3D images were created on [employer] work station. No Gadolinium given. FINDINGS: Lower Thorax: No evidence for acute process. MRCP: * The intrahepatic ducts have a normal appearance. * The common bile duct at the level of the pancreatic head measures 4 mm in size. * The common hepatic duct measures 2-3 mm in size. * The pancreatic duct is normal. * The gallbladder appears unremarkable. Abdomen: Liver: Signal dropout on chemical shift out of phase imaging. Pancreas: Unremarkable. Spleen: Unremarkable. Adrenal glands: Unremarkable. Kidneys: Simple appearing high T2 signal 13 mm right renal cyst. Scattered tiny foci of high T2 signa l within the left kidney likely representing cysts. In intermediate T2 signal cyst in the left kidney measuring 10 mm Stomach and Bowel: Small hiatal hernia. Peritoneum: No evidence of pneumoperitoneum or free fluid. Vasculature: Unremarkable. No aortic aneurysm. Musculoskeletal: The osseous structures appear intact. Lymph Nodes: No gross evidence for lymphadenopathy. Abdominal wall: Unremarkable. IMPRESSION: 1. No evidence to suggest ductal stricture, choledocholithiasis, or biliary ductal dilatation. 2. Hepatic steatosis.
== END | disposition home or self-care (01) ==
LOC: RADMRIMAIN 08:51
PROVIDERS: ATTEND Internal Medicine
DX: K76.0 Fatty (change of) liver, not elsewhere classified (principal); R74.8 Abnormal levels of other serum enzymes
CPT/HCPCS: 74181

== ENCOUNTER → 2023-06-07 | Outpatient (CLI) | payer MEDICARE ==
[2023-06-07 16:10] LABS: Basophils # (A) 0.04 X 10*3/uL (0.00-0.10); Basophils % (A) 0.6 %; Eosinophils # (A) 0.16 X 10*3/uL (0.04-0.35); Eosinophils % (A) 2.3 %; HCT 37.4 % (37.2-46.3); HGB 11.8 g/dL (12.0-15.0); Lymphocytes # (A) 2.23 X 10*3/uL (0.90-5.00); Lymphocytes % (A) 32.4 %; MCHC 31.6 g/dL (32.0-37.0); MCV 88.6 FL (80.0-97.0); Mean Platelet Volume 10.2 FL (9.5-12.2); Monocytes # (A) 0.45 X 10*3/uL (0.20-1.00); Monocytes % (A) 6.5 %; NRBC Per 100 WBC 0 X 10*3/uL (0.00-0.01); Neutrophils # (A) 3.99 X 10*3/uL (1.80-7.70); Neutrophils % (A) 57.9 %; Platelet Count 312 X 10*3/uL (140-440); RBC 4.22 X 10*6/uL (4.10-5.20); RDW 14.1 % (11.5-14.5); WBC 6.89 X 10*3/uL (4.50-10.00)
[2023-06-07 16:20] LABS: Ceruloplasmin 33.1 mg/dL (20.0-60.0)
[2023-06-07 16:22] LABS: Protein, Total 6.8 g/dL (6.2-8.2)
[2023-06-07 16:23] LABS: % Iron Saturation 16.89 (12.00-45.00); ALT 21 U/L (8-44); AST 19 U/L (13-35); Albumin 4.3 g/dL (3.8-4.9); Albumin/Globulin Ratio 1.72 Ratio (1.60-3.17); Alkaline Phosphatase 171 U/L (41-126); BUN/Creat Ratio 22.44 Ratio (12.00-20.00); Blood Urea Nitrogen 20.2 mg/dL (9.0-27.0); Calcium 9.2 mg/dL (8.7-10.3); Carbon Dioxide 23.3 mmol/L (21.6-31.8); Chloride 107 mmol/L (96-109); Ferritin 99.2 ng/mL (10.0-291.0); GGT 23 U/L (0-38); Globulin 2.5 g/dL (1.6-3.3); Glucose 109 mg/dL (70-110); Iron 51 UG/DL (50-170); Potassium 4.7 mmol/L (3.5-5.5); Sodium 143 mmol/L (135-145); Total Bilirubin 0.3 mg/dL (0.3-1.2); Total Iron Binding Capacity 302 UG/DL (228-460); Total Protein 6.8 g/dL (6.2-8.2)
[2023-06-08 12:54] LABS: Smooth Muscle Antibody 6 UNITS (<20)
[2023-06-08 17:29] LABS: Albumin 3.77 g/dL (3.80-4.90); Gamma Globulin 0.92 g/dL (0.70-1.50)
== END | disposition home or self-care (01) ==
LOC: LABWHC1 11:28
PROVIDERS: ATTEND Nurse Practitioner Family
DX: R74.8 Abnormal levels of other serum enzymes (principal)
CPT/HCPCS: 36415; 80053; 81596; 82103; 82390; 82728; 82977; 83516; 83540; 83550; 84165; 85025; 86038

== ENCOUNTER → 2023-08-02 | Outpatient (CLI) | payer MEDICARE ==
--- NOTE | 2023-08-07 12:10 | MM ---
Reason for Exam: Screening (asymptomatic). Last screening mammogram was performed 12 month(s) ago. Patient History: Menarche at age 14. First Full-Term at age 26. Hysterectomy at age 48. Postmenopausal. Patient has history of breast feeding. Estrogen for 6 months. Risk Values: Bekah 5 year model risk: 1.6%. NCI Lifetime model risk: 4.3%. Prior Study Comparison: 04/27/2020 Bilateral MG screening mammo w CAD - 2, [facility]. 07/26/2021 Bilateral MG 3D screening mammo w/cad, [facility]. 07/26/2022 Bilateral MG 3D screening mammo w/cad, [facility]. Tissue Density: There are scattered areas of fibroglandular density. Findings: Analyzed By CAD. Right breast: There is no suspicious group of microcalcifications or new suspicious mass. Left breast: There is no suspicious group of microcalcifications or new suspicious mass. Overall Assessment: Negative, BI-RAD 1 Management: Screening Mammogram of both breasts in [address] [facility] will attempt to contact patient to return for supplemental views and ultrasound if indicated. Patient should continue monthly self-breast exams. A clinical breast exam by your physician is recommended on an annual basis. This exam should not preclude additional follow-up of suspicious palpable abnormalities. Note on Bekah scores and lifetime risk: 1. A Bekah score greater than 3% is considered moderate risk. If this is the case, consider specialist referral to assess eligibility for a risk reducing agent. 2. If overall lifetime risk for the development of breast cancer is 20% or higher, the patient may qualify for future screening with alternating mammogram and breast MRI. Electronically signed and approved by: Ricardo Hand DO
== END | disposition home or self-care (01) ==
LOC: RADMAMWWP 09:50
PROVIDERS: ATTEND Internal Medicine
DX: Z12.31 Encounter for screening mammogram for malignant neoplasm of breast (principal); Z78.0 Asymptomatic menopausal state
CPT/HCPCS: 77063; 77067

== ENCOUNTER → 2024-01-01 | Outpatient (CLI) | payer MEDICARE ==
[2024-01-01 16:23] LABS: ALT 15 U/L (8-44); AST 18 U/L (13-35); Albumin 4.5 g/dL (3.8-4.9); Albumin/Globulin Ratio 1.61 Ratio (1.60-3.17); Alkaline Phosphatase 163 U/L (41-126); Blood Urea Nitrogen 24.8 mg/dL (9.0-27.0); Calcium 9.9 mg/dL (8.7-10.3); Carbon Dioxide 22.2 mmol/L (21.6-31.8); Chloride 107 mmol/L (96-109); Globulin 2.8 g/dL (1.6-3.3); Glucose 122 mg/dL (70-110); Potassium 4.7 mmol/L (3.5-5.5); Sodium 142 mmol/L (135-145); Total Bilirubin 0.5 mg/dL (0.3-1.2); Total Protein 7.3 g/dL (6.2-8.2)
[2024-01-01 16:55] LABS: Basophils # (A) 0.03 X 10*3/uL (0.00-0.10); Basophils % (A) 0.4 %; Eosinophils # (A) 0.27 X 10*3/uL (0.04-0.35); Eosinophils % (A) 3.7 %; HCT 38.5 % (37.2-46.3); HGB 12.1 g/dL (12.0-15.0); Lymphocytes # (A) 2.51 X 10*3/uL (0.90-5.00); Lymphocytes % (A) 34.2 %; MCH 28.1 pg (27.0-32.0); MCHC 31.4 g/dL (32.0-37.0); MCV 89.5 FL (80.0-97.0); Mean Platelet Volume 10.7 FL (9.5-12.2); Monocytes % (A) 6.8 %; NRBC Per 100 WBC 0 X 10*3/uL (0.00-0.01); Neutrophils % (A) 54.6 %; Platelet Count 341 X 10*3/uL (140-440); WBC 7.33 X 10*3/uL (4.50-10.00)
== END | disposition home or self-care (01) ==
LOC: LABWHC1 09:01
PROVIDERS: ATTEND Internal Medicine Gastroenterology
DX: R74.8 Abnormal levels of other serum enzymes (principal)
CPT/HCPCS: 36415; 80053; 85025

== ENCOUNTER → 2024-07-03 | Outpatient (CLI) | payer MEDICARE ==
[2024-07-03 15:11] LABS: Basophils # (A) 0.04 X 10*3/uL (0.00-0.10); Basophils % (A) 0.6 %; Eosinophils # (A) 0.21 X 10*3/uL (0.04-0.35); Eosinophils % (A) 3.3 %; HCT 39.7 % (37.2-46.3); HGB 12.3 g/dL (12.0-15.0); Lymphocytes # (A) 2.02 X 10*3/uL (0.90-5.00); MCV 90.2 FL (80.0-97.0); Monocytes % (A) 7.9 %; NRBC Per 100 WBC 0 X 10*3/uL (0.00-0.01); Neutrophils # (A) 3.52 X 10*3/uL (1.80-7.70); Neutrophils % (A) 55.9 %; Platelet Count 315 X 10*3/uL (140-440); RDW 13.2 % (11.5-14.5); WBC 6.31 X 10*3/uL (4.50-10.00)
[2024-07-03 15:42] LABS: ALT 15 U/L (8-44); AST 20 U/L (13-35); Albumin 4.4 g/dL (3.8-4.9); Albumin/Globulin Ratio 1.76 Ratio (1.60-3.17); Alkaline Phosphatase 158 U/L (41-126); BUN/Creat Ratio 17.36 Ratio (12.00-20.00); Blood Urea Nitrogen 19.1 mg/dL (9.0-27.0); Calcium 9.5 mg/dL (8.7-10.3); Carbon Dioxide 24.7 mmol/L (21.6-31.8); Chloride 106 mmol/L (96-109); Globulin 2.5 g/dL (1.6-3.3); Glucose 108 mg/dL (70-110); Potassium 4.9 mmol/L (3.5-5.5); Sodium 143 mmol/L (135-145); Total Bilirubin 0.6 mg/dL (0.3-1.2); Total Protein 6.9 g/dL (6.2-8.2)
== END | disposition home or self-care (01) ==
LOC: LABWHC1 08:29
PROVIDERS: ATTEND Internal Medicine Gastroenterology
DX: R74.8 Abnormal levels of other serum enzymes (principal)
CPT/HCPCS: 36415; 80053; 85025

== ENCOUNTER → 2024-09-04 | Outpatient (CLI) | payer MEDICARE ==
--- NOTE | 2024-09-04 09:18 | MM ---
Reason for Exam: Screening (asymptomatic). Last mammogram was performed 1 year(s) and 1 month(s) ago. Patient History: Menarche at age 14. First Full-Term at age 26. Hysterectomy at age 48. Postmenopausal. Patient has history of breast feeding. Estrogen for 6 months. Risk Values: Bekah 5 year model risk: 1.6%. NCI Lifetime model risk: 4.1%. Prior Study Comparison: 02/26/2020 Bilateral MG screening mammo w CAD - 2, [facility]. 04/27/2020 Bilateral MG screening mammo w CAD - 2, [facility]. 07/26/2021 Bilateral MG 3D screening mammo w/cad, [facility]. 07/26/2022 Bilateral MG 3D screening mammo w/cad, [facility]. 08/02/2023 Bilateral MG 3D screening mammo w/cad, [facility]. Tissue Density: There are scattered areas of fibroglandular density. Findings: Analyzed By CAD. There is no suspicious group of microcalcifications or new suspicious mass in either breast. Overall Assessment: Benign, BI-RAD 2 Management: Screening Mammogram of both breasts in 1 year. . Patient should continue monthly self-breast exams. A clinical breast exam by your physician is recommended on an annual basis. This exam should not preclude additional follow-up of suspicious palpable abnormalities. Note on Bekah scores and lifetime risk: 1. A Bekah score greater than 3% is considered moderate risk. If this is the case, consider specialist referral to assess eligibility for a risk reducing agent. 2. If overall lifetime risk for the development of breast cancer is 20% or higher, the patient may qualify for future screening with alternating mammogram and breast MRI. [facility], , 09/04/2024 9:15 AM. Electronically signed and approved by: Buck Burkett M.D. Radiologis
--- NOTE | 2024-09-04 11:20 | BD ---
EXAMINATION TYPE: Axial Bone Density DATE OF EXAM: 09/04/2024 CLINICAL HISTORY: 74 years old Female. ICD-10 CODE: M85.80 OSTEOPENIA , Additional History: Height: 60.75" Weight: 220lbs FRAX RISK QUESTIONS: Alcohol (3 or more units per day): No Family History (Parent hip fracture): No Glucocorticoids (More than 3mos): No (Ex: prednisone, prednisolone, methylprednisolone, dexamethasone, and hydrocortisone). History of Fracture in Adulthood: Yes Secondary Osteoporosis: 1. Type 1 Diabetes: No 2. Hyperthyroidism: No 3. Menopause before 45: Yes, Hysterectomy 4. Malnutrition: No 5. Chronic liver disease: No Rheumatoid Arthritis: No Current Tobacco Use: No RISK FACTORS HISTORY OF: Hip Fracture (Right/Left): No Spine Fracture: No History of Wrist Fracture: No Surgery to Spine/Hip(right/left)/Wrist (right/left): Bilateral hip replacements When: [id number], [id number] MEDICATIONS: Thyroid Medications: No Osteoporosis Medications: No EXAM MEASUREMENTS: Bone mineral densitometry was performed using the [employer] System. Bone mineral density as measured about the Lumbar spine is: ----- L1-L4(G/cm2): 1.330 T Score Values are as follows: ----- L1: 1.1 ----- L2: 0.5 ----- L3: 1.2 ----- L4: 1.8 ----- L1-L4: 1.2 Z Score Values are as follows: ----- L1: 1.6 ----- L2: 1.1 ----- L3: 1.7 ----- L4: 2.3 ----- L1-L4: 1.8 Bone mineral density has: increased 1.4% since study of: 07/26/2022 Bone mineral density about the L Wrist (g/cm2): 0.638 T Score values are as follows: -----Dist. R+U: 1.5 -----Prox. R+U: -1.3 -----Radius total: -0.6 Z Score values are as follows: -----Dist. R+U: 3.5 -----Prox. R+U: 0.7 -----Radius total: 1.4 Bone mineral density has: decreased -1.9% since study of: 07/26/2022 FRAX%s: N/A IMPRESSION: Osteopenia (T Score between -2.5 and -1). There is slightly increased risk of fracture and the patient may be considered for treatment. Re-Screen 2-5 years. NOTE: T-SCORE=SD OF THE YOUNG ADULT MEAN. [facility], , 09/04/2024 11:18 AM
== END | disposition home or self-care (01) ==
LOC: RADBDWWP 08:36
PROVIDERS: ATTEND Internal Medicine
DX: Z12.31 Encounter for screening mammogram for malignant neoplasm of breast (principal); R92.323 Mammographic fibroglandular density, bilateral breasts; M85.851 Other specified disorders of bone density and structure, right thigh; Z78.0 Asymptomatic menopausal state
CPT/HCPCS: 77063; 77067; 77080